=== PATIENT | female | born 1945 | race Caucasian/White ===

== ENCOUNTER 2022-07-13 11:14 | Observation (INO) ==
[2022-07-13 11:42] LABS: BASOPHILS # (AUTO) 0.1 X10^3/uL (0.0-0.1); BASOPHILS % (AUTO) 0.9 % (0.2-1.0); EOSINOPHILS # (AUTO) 0.4 x10^3/uL (0.0-0.2); EOSINOPHILS % (AUTO) 6.2 % (0.9-2.9); HEMATOCRIT 36.9 % (36.0-47.0); HEMOGLOBIN 12.5 g/dL (12.0-16.0); LYMPHOCYTES # (AUTO) 2.7 X10^3/uL (1.3-2.9); LYMPHOCYTES % (AUTO) 37.2 % (21.0-51.0); MEAN CORPUSCULAR HEMOGLOBIN 30.6 pg (27.0-34.0); MEAN CORPUSCULAR VOLUME 90.1 fL (80.0-100.0); MEAN PLATELET VOLUME 8.1 fL (7.4-11.0); MONOCYTES # (AUTO) 0.5 x10^3/uL (0.3-0.8); MONOCYTES % (AUTO) 6.9 % (0.0-13.0); NEUTROPHILS # (AUTO) 3.5 x10^3/uL (2.2-4.8); NEUTROPHILS % (AUTO) 48.8 % (42.0-75.0); RED BLOOD COUNT 4.09 X10^6/uL (3.5-5.4); RED CELL DISTRIBUTION WIDTH 13.1 % (11.6-16.5); WHITE BLOOD COUNT 7.2 X10^3/uL (3.6-10.0)
[2022-07-13 11:44] LABS: INR 1.01 (0.8-1.3)
--- NOTE | 2022-07-13 11:50 | CT ---
HISTORYCVASTUDYCT head without contrastTechnique: Axial noncontrast images with coronal and sagittal reformats. Dose reduction procedures were used with mA/kv adjusted for body size.COMPARISONNoneFINDINGSThe ventricles are normal in size shape and position. There is slight decreased attenuation in the periventricular white matter suggestive of small vessel vascular disease. There are no focal areas of abnormal attenuation to suggest recent or remote CVA, hemorrhage, mass lesion, or extra-axial fluid collection. The visualized sinuses are clear. The calvarium is intact. If acute CVA is a strong clinical consideration MRI with diffusion imaging would be of further diagnostic value in should be obtained.IMPRESSIONNo acute intracranial abnormality identified. See recommendation as aboveMild small vessel diseaseElectronically signed by: JEAN CARLOS DURÁN (Jul 13, 2022 11:48:51)
[2022-07-13 11:52] LABS: ALANINE AMINOTRANSFERASE 18 Units/L (12-78); ALBUMIN 3.4 g/dL (3.4-5.0); ALKALINE PHOSPHATASE 34 Units/L (46-116); ASPARTATE AMINO TRANSFERASE 32 Units/L (15-37); BLOOD UREA NITROGEN 16 mg/dL (7-18); CALCIUM 9.1 mg/dL (8.5-10.1); CHLORIDE 105 mmol/L (98-107); CHOL/HDL RATIO 2.8 (0.0-5.0); CHOLESTEROL 161 mg/dL (0-200); CREATINE KINASE 60 Units/L (26-192); CREATININE 1.21 mg/dL (0.55-1.02); HDL CHOLESTEROL 58 mg/dL (40-60); SODIUM 142 mmol/L (136-145); TOTAL PROTEIN 7.5 g/dL (6.4-8.2); TRIGLYCERIDES 65 mg/dL (0-150); eGFR NON BLACK RACES 46 (>60)
[2022-07-13] MEDS ORDERED: PLAVIX PO ONE (12:00)
[2022-07-13] MEDS ORDERED: NS 1,000 ML IV 1,000 ML ONE (12:01)
[2022-07-13] MEDS ORDERED: PLAVIX ONE (12:01)
--- NOTE | 2022-07-13 12:02 | TELESTROKE ---
[facility]ist Consult Date of Consult Date of Exam: 07/13/22 Time of Arrival to the ED: 11:14 Allergies Allergies Allergy/AdvReac Type Severity Reaction Status Date / Time No Known Drug Allergies Allergy Verified 10/12/21 09:42 Vital Signs Vital Signs: Temp Pulse Resp BP Pulse Ox O2 Del Method 07/13/22 11:14 98.1 F 82 18 141/76 99 Room Air 10/12/21 11:06 100/55 History of Present Illness History of Present Illness: [facility] TeleNeurology Consult Services Patient Name: Anna Covington Date of : 1945 Identification Number: Date of Service: 07/13/2022 11:20:16 Diagnosis: I63.9 - Cerebrovascular accident (CVA), unspecified mechanism (HCC) Impression: 77 yo F w hx of HTN and recent presentation in May with diffuse weakness/left facial numbness who presents with new onset L sided numbness now of face, arm, and leg concerning for lacunar stroke. NIHSS 1. tPA deferred given no disabling symptoms. CTH w/o shows no hemorrhage. Recommend MRI brain w/o, US carotids bl, TTE w bubble (if not done within 90 days), a1c, lipid panel. She was started on asa 81 mg and has been compliant, recommend giving plavix 300 mg now and tomorrow keeping on asa 81/plavix 75 for 30 days then plavix 75 monotherapy thereafter. Metrics: Last Known Well: 07/13/2022 10:30:00 [facility] Notification Time: 07/13/2022 11:20:16 Arrival Time: 07/13/2022 11:14:01 Stamp Time: 07/13/2022 11:20:16 Initial Response Time: 07/13/2022 11:21:11 Symptoms: left sided numbness. NIHSS Start Assessment Time: 07/13/2022 11:40:19 Patient is not a candidate for Thrombolytic. Thrombolytic Medical Decision: 07/13/2022 11:31:14 Patient was not deemed candidate for Thrombolytic because of following reasons: No disabling symptoms. CT head showed no acute hemorrhage or acute core infarct. ED Physician notified of diagnostic impression and management plan on 07/13/2022 11:57:58 Advanced Imaging: Advanced Imaging Not Completed because: low suspicion for LVO Our recommendations are outlined below. Recommendations: Stroke/Telemetry Floor Neuro Checks Bedside Swallow Eval DVT Prophylaxis IV Fluids, Normal Saline Head of Bed 30 Degrees Euglycemia and Avoid Hyperthermia (PRN Acetaminophen) Routine Consultation with Inhouse Neurology for Follow up Care Sign Out: Discussed with Emergency Department Provider History of Present Illness: Patient is a 77 year old Male. Patient was brought by EMS for symptoms of left sided numbness. Patient affirms new onset painless numbness starting around her left jaw then moving to the entire left hemiface and down into her left arm and leg. No focal weaknesses noted. She had an episode of diffuse weakness and left facial numbness/jaw numbness in mid May and was worked up for a TIA. She has been on asa 81 mg since then. No clear provoking factors to todays event although was 'sick' several days prior. Social History:Unable to obtain due to Patient Status Family History:Unable to obtain due to Patient Status Review of System: 14 Points Review of Systems was performed and was negative except mentioned in HPI. Anticoagulant use: No Antiplatelet use: No Allergies: Reviewed Examination: BP(141/76), Pulse(82), 1A: Level of Consciousness - Alert; keenly responsive + 0 1B: Ask Month and Age - Both Questions Right + 0 1C: Blink Eyes & Squeeze Hands - Performs Both Tasks + 0 2: Test Horizontal Extraocular Movements - Normal + 0 3: Test Visual [place] - No Visual Loss + 0 4: Test Facial Palsy (Use Grimace if Obtunded) - Normal symmetry + 0 5A: Test Left Arm Motor Drift - No Drift for 10 Seconds + 0 5B: Test Right Arm Motor Drift - No Drift for 10 Seconds + 0 6A: Test Left Leg Motor Drift - No Drift for 5 Seconds + 0 6B: Test Right Leg Motor Drift - No Drift for 5 Seconds + 0 7: Test Limb Ataxia (FNF/Heel-Fierro) - No Ataxia + 0 8: Test Sensation - Mild-Moderate Loss: Less Sharp/More Dull + 1 9: Test Language/Aphasia - Normal; No aphasia + 0 10: Test Dysarthria - Normal + 0 11: Test Extinction/Inattention - No abnormality + 0 NIHSS Score: 1 Pre-Morbid Modified Yves Scale: 0 Points = No symptoms at all Patient/Family was informed the Neurology Consult would occur via TeleHealth c onsult by way of interactive audio and video telecommunications and consented to receiving care in this manner. Patient is being evaluated for possible acute neurologic impairment and high probability of imminent or life-threatening deterioration. I spent total of 30 minutes providing care to this patient, including time for face to face visit via telemedicine, review of medical records, imaging studies and discussion of findings with providers, the patient and/or family. Dr Wil Asher [facility] Case [id number] Medical Decision Making Result Diagrams: 07/13/22 11:20 07/13/22 11:20 Labs: Laboratory Results - last 24 hr 07/13/22 07/13/22 07/13/22 11:20 11:20 11:20 WBC 7.2 RBC 4.09 Hgb 12.5 Hct 36.9 MCV 90.1 MCH 30.6 MCHC 34.0 RDW 13.1 Plt Count 263 MPV 8.1 Neut % (Auto) 48.8 Lymph % (Auto) 37.2 [place] % (Auto) 6.9 Eos % (Auto) 6.2 H Baso % (Auto) 0.9 Neut # (Auto) 3.5 Lymph # (Auto) 2.7 [place] # (Auto) 0.5 Eos # (Auto) 0.4 H Baso # (Auto) 0.1 Absolute Nucleated RBC 0.1 PT 13.0 INR Target Range - INR 1.01 APTT 24.5 PTT Comment - Fibrinogen 578 H Sodium 142 Corrected Sodium TNP Potassium 4.0 Chloride 105 Carbon Dioxide 29.0 BUN 16 Creatinine 1.21 H Est GFR (MDRD) Af Amer 56 L Est GFR (MDRD) Non-Af 46 L Glucose 107 H Calcium 9.1 Corrected Calcium TNP Total Bilirubin 0.30 AST 32 ALT 18 Alkaline Phosphatase 34 L Creatine Kinase 60 Troponin I High Sens 5.5 Total Protein 7.5 Albumin 3.4 Globulin 4.1 Albumin/Globulin Ratio 0.8 L Triglycerides 65 Cholesterol 161 LDL Cholesterol, Calc 90 HDL Cholesterol 58 Cholesterol/HDL Ratio 2.8
[2022-07-13] MEDS: NS 1,000 ML IV 1,000 ML IV SCH ×3 (12:03→20:20)
[2022-07-13 12:41] LABS: BILIRUBIN,URINE NEGATIVE (NEGATIVE); BLOOD/HEMOGLOBIN,URINE 2+ (NEGATIVE); GLUCOSE, URINE NEGATIVE (NEGATIVE); KETONES,URINE NEGATIVE (NEGATIVE); LEUKOCYTE ESTERASE ,URINE 1+ (NEGATIVE); NITRITES,URINE NEGATIVE (NEGATIVE); PROTEIN,URINE 2+ (NEGATIVE); UROBILINOGEN,URINE NORMAL (NORMAL)
--- NOTE | 2022-07-13 12:46 | DR.GENAD ---
HPI Time Seen Time Seen by Provider: 07/13/22 11:15 Complaint/Symptoms Chief Complaint Doctors Comments: PATIENT EXPERIENCED L SIDE WEAKNESS APPROXIMATELY ONE HOUR PRIOR TO ER EVALUATION. HAD MILD CVA 6 MONTHS AGO WITHOUT RESIDUAL NEUROLOGIC DEFICIT. PATIENT WAS PUT ON STROKE ALERT PROTOCHOL. Chief Complaint:: pt presents to the ED with complaints of "stroke like symptoms" pt reports left-sided jaw/teeth tingling, mild left arm numbness and left leg numbness that started at 1028. Denies any slurred speech or trouble swallowing. denies any facial drooping. pt reports no weakness only mild numbness. Self Treatment fo Chief Complaint: pt took asa 81 mg this am Source History Provided: Patient Mode of Arrival Mode of Arrival: Ambulatory Timing Onset of Chief Complaint: 07/13/22 PMH PMH Past Medical History: Yes Past Medical History: Hyperthyroidism Past Medical History Comment: TIA, Past Surgical History: No Surgical History: No History Family History History of Family Medical Conditions: Yes Family Medical History: Cancer Family Medical History Comment: Father-CVA Social History Does any household member use tobacco: No Do you use any recreational Drugs:: No Lives Where: [facility] Infectious screening In the last 2 months have you had wt loss of >10#?: NO Have you had fever, night sweats or hemotysis?: No Have you traveled outside the country in the last 6 months?: No Isolation: Standard ROS Review of Systems Constitutional: Other (LEFT SIDE WEAKNESS) Eyes: No Symptoms Reported ENTM: No Symptoms Reported Respiratoy: No Symptoms Reported Cardiovascular: No Symptoms Reported Gastrointestinal/Abdominal: No Symptoms Reported Genitourinary: No Symptoms Reported Neurological: Weakness (LEFT SIDE WEAKNESS) Musculoskeletal: No Symptoms Reported Integumentary: No Symptoms Reported Hematologic/Lymphatic: No Symptoms Reported Endocrine: No Symptoms Reported Psychiatric: No Symptoms Reported PE Vital Signs Vitals: Temperature 98.1 F Pulse Rate [Left Radial] 76 Pulse Rate 82 Respiratory Rate 22 Blood Pressure [Left Arm] 96/56 Blood Pressure 141/76 O2 Sat by Pulse Oximetry 98 General Limitations: No Limitations General Appearance: Anxious Head Head Exam: Normal Inspection, Atraumatic and Normocephalic Eyes Eye exam: Normal Appearance, PERRL and EOMI ENT ENT Exam: Normal Exam, Normal Oropharynx and Normal External Ear Exam External Ear Exam: Normal External Inspection TM/Canal Exam: Bilateral: Normal Nose Exam: Normal Nose Exam Mouth Exam: Normal Inspection Throat Exam: Normal Inspection Neck Neck Exam: Normal Inspection and Full ROM Chest Chest Inspection: Normal Inspection and Symmetric Chest Wall Rise Respiratory Respiratory Exam: Normal Lung Sounds Bilat Cardiovascular Cardiovascular Exam: Regular Rate and Normal Rhythm Abdominal Exam Abdominal Exam: Normal Inspection, Normal Bowel Sounds and Soft Extremities Extremities Exam: Normal Inspection and Full ROM Back Back Exam: Normal Inspection and Full ROM Neurologic Neurological Exam: Alert, Oriented X3 and CN II-XII Intact Psychiatric Psychiatric Exam: Anxious Skin Skin Exam: Warm, Dry and Intact MDM Differential Diagnosis Differential Diagnosis: CVA,TIA,ANXIETY COURSE Treatment Treatment: PATIENT WAS EVALUATED BY NEUROLOGIST DR AMBRIZ AND HE DID NOT THINK THAT PATIENT WAS HAVING CVA, THERE MIGHT BE MINOR AREA IN LACUNAR AREA AND HE STATED TO GET MRI OF BRAIN WITHOUT CONTRAST AND GIVE 300MG LOADING DOSE OF PLAVIX AND CONTINUE LOW DOSE ASPIRIN. GET ULTRASOUND OF CAROTIDS AND START PLAVIX 75 MG TOMORROW. REFER TO OBSERVATION TO MONITOR FOR ANY NEUROLOGIC CHANGES. PATIENT WAS MADE AWARE OF THE RECOMMENDATIONS AND WAS AGREABLE TO THE PLAN. SPOKE TO DR MCCORMACK AT 1302 AND HE ACCEPTED THE PATIENT TO OBSERVATION. ROR Labs Reviewed Laboratory Results Reviewed?: Yes Result Diagrams: 07/13/22 11:20 07/13/22 11:20 Laboratory: WBC 7.2 X10^3/uL (3.6-10.0) 07/13/22 11:20 RBC 4.09 X10^6/uL (3.5-5.4) 07/13/22 11:20 Hgb 12.5 g/dL (12.0-16.0) 07/13/22 11:20 Hct 36.9 % (36.0-47.0) 07/13/22 11:20 MCV 90.1 fL (80.0-100.0) 07/13/22 11:20 MCH 30.6 pg (27.0-34.0) 07/13/22 11:20 MCHC 34.0 g/dL (33.0-35.0) 07/13/22 11:20 RDW 13.1 % (11.6-16.5) 07/13/22 11:20 Plt Count 263 X10^3/uL (150.0-450.0) 07/13/22 11:20 MPV 8.1 fL (7.4-11.0) 07/13/22 11:20 Neut % (Auto) 48.8 % (42.0-75.0) 07/13/22 11:20 Lymph % (Auto) 37.2 % (21.0-51.0) 07/13/22 11:20 [place] % (Auto) 6.9 % (0.0-13.0) 07/13/22 11:20 Eos % (Auto) 6.2 % (0.9-2.9) H 07/13/22 11:20 Baso % (Auto) 0.9 % (0.2-1.0) 07/13/22 11:20 Neut # (Auto) 3.5 x10^3/uL (2.2-4.8) 07/13/22 11:20 Lymph # (Auto) 2.7 X10^3/uL (1.3-2.9) 07/13/22 11:20 [place] # (Auto) 0.5 x10^3/uL (0.3-0.8) 07/13/22 11:20 Eos # (Auto) 0.4 x10^3/uL (0.0-0.2) H 07/13/22 11:20 Baso # (Auto) 0.1 X10^3/uL (0.0-0.1) 07/13/22 11:20 Absolute Nucleated RBC 0.1 /100WBC 07/13/22 11:20 PT 13.0 SECONDS (11.8-14.3) 07/13/22 11:20 INR Target Range - 07/13/22 11:20 INR 1.01 (0.8-1.3) 07/13/22 11:20 APTT 24.5 SECONDS (22.9-36.5) 07/13/22 11:20 PTT Comment - 07/13/22 11:20 Fibrinogen 578 mg/dL (239-489) H 07/13/22 11:20 Sodium 142 mmol/L (136-145) 07/13/22 11:20 Corrected Sodium TNP 07/13/22 11:20 Potassium 4.0 mmol/L (3.5-5.1) 07/13/22 11:20 Chloride 105 mmol/L (98-107) 07/13/22 11:20 Carbon Dioxide 29.0 mmol/L (21-32) 07/13/22 11:20 BUN 16 mg/dL (7-18) 07/13/22 11:20 Creatinine 1.21 mg/dL (0.55-1.02) H 07/13/22 11:20 Est GFR (MDRD) Af Amer 56 (>60) L 07/13/22 11:20 Est GFR (MDRD) Non-Af 46 (>60) L 07/13/22 11:20 Glucose 107 mg/dL (65-99) H 07/13/22 11:20 Calcium 9.1 mg/dL (8.5-10.1) 07/13/22 11:20 Corrected Calcium TNP 07/13/22 11:20 Total Bilirubin 0.30 mg/dL (0.2-1.0) 07/13/22 11:20 AST 32 Units/L (15-37) 07/13/22 11:20 ALT 18 Units/L (12-78) 07/13/22 11:20 Alkaline Phosphatase 34 Units/L (46-116) L 07/13/22 11:20 Creatine Kinase 60 Units/L (26-192) 07/13/22 11:20 Troponin I High Sens 5.5 ng/L (4.0-60.0) 07/13/22 11:20 Total Protein 7.5 g/dL (6.4-8.2) 07/13/22 11:20 Albumin 3.4 g/dL (3.4-5.0) 07/13/22 11:20 Globulin 4.1 g/dL (2.5-4.5) 07/13/22 11:20 Albumin/Globulin Ratio 0.8 Ratio (1.1-2.1) L 07/13/22 11:20 Triglycerides 65 mg/dL (0-150) 07/13/22 11:20 Cholesterol 161 mg/dL (0-200) 07/13/22 11:20 LDL Cholesterol, Calc 90 mg/dL (0-100) 07/13/22 11:20 HDL Cholesterol 58 mg/dL (40-60) 07/13/22 11:20 Cholesterol/HDL Ratio 2.8 (0.0-5.0) 07/13/22 11:20 Specimen Type Clean catch urine 07/13/22 12:18 Urine Color Straw (YELLOW) 07/13/22 12:18 Urine Appearance Clear (CLEAR) 07/13/22 12:18 Urine pH 7.0 (5.0 - 8.0) 07/13/22 12:18 Ur Specific Saline 1.015 (1.000-1.030) 07/13/22 12:18 Urine Protein 2+ (NEGATIVE) 07/13/22 12:18 Urine Glucose (UA) Negative (NEGATIVE) 07/13/22 12:18 Urine Ketones Negative (NEGATIVE) 07/13/22 12:18 Urine Blood 2+ (NEGATIVE) 07/13/22 12:18 Urine Nitrite Negative (NEGATIVE) 07/13/22 12:18 Urine Bilirubin Negative (NEGATIVE) 07/13/22 12:18 Urine Urobilinogen Normal (NORMAL) 07/13/22 12:18 Ur Leukocyte Esterase 1+ (NEGATIVE) 07/13/22 12:18 Urine RBC 3-5 /HPF (0-3) A 07/13/22 12:18 Urine WBC 0-2 /HPF (0-5) 07/13/22 12:18 Ur Squamous Epith Cells Rare /HPF (NEGATIVE) 07/13/22 12:18 Urine Bacteria Trace /HPF (NEGATIVE) 07/13/22 12:18 Ur Culture Indicated? No/not indicated 07/13/22 12:18 Blood Type A POSITIVE 07/13/22 11:46 Antibody Screen Negative 07/13/22 11:46 XRAY XRAY Interpreted by: Radiologist X-ray Results: NO ACUTE INTRATHORACIC ABNORMALITY. CT OF BRAIN NO ACUTE BLEED OR ATHER INTRACRANIAL ABNORMALITY. EKG Rhythm: NSR Opioid Opioid Risk Tool Age (Fransisco box if 16-45): No History of Preadolescent Sexual Abuse: No Total: 0 Total Score Risk Category: Low Risk Copyright: Xavier CODY predicting aberrant behaviors Discharge Plan Diagnosis Discharge Problem: Transient ischemic attack (TIA) Discharge Plan Patient Disposition: 09 ADMITTED INPATIENT Condition: Stable Prescriptions: No Action celecoxib 200 mg capsule 200 mg PO BID alprazolam 1 mg tablet 1 mg PO TID PRN fluoxetine 10 mg capsule 10 mg PO BID aspirin 81 mg Tablet 81 mg PO DAILY rosuvastatin 5 mg tablet 5 mg PO QDAY Health Concerns: Post Hospitalization: new medications and changes needed to prevent readmission or further decline. Pt educated and given instructions on all concerns. Plan of Treatment: Continue with present treatment and follow up plan. Pt is to keep follow up appointment as instructed and take medications as ordered. Orders to Discharge Patient Discharge Orders: Transfer (Routine); Ordered 07/13/22 Ordered By: Yuan Abel Follow ups/Referrals Follow ups/Referrals: AILEEN BLEVINS [Primary Care Provider] - 3 days Instructions Stand Alone Forms: Precautions for COVID19, [facility], Patient Portal, Social Distancing
[2022-07-13 12:51] LABS: APPEARANCE,URINE CLEAR (CLEAR); COLOR,URINE STRAW (YELLOW)
[2022-07-13 12:52] LABS: BACTERIA,URINE TRACE /HPF (NEGATIVE); SQUAMOUS EPITHELIAL CELL,UR RARE /HPF (NEGATIVE)
--- NOTE | 2022-07-13 14:21 | RAD ---
HISTORYPOSS STROKESTUDYCHEST, 1 VIEWCOMPARISONNoneFINDINGSThe cardiomediastinal silhouette is normal in size. No acute airspace disease. No pneumothorax or effusion. The bony thorax appears intact.IMPRESSIONNo acute cardiopulmonary disease.Electronically signed by: JEAN CARLOS DURÁN (Jul 13, 2022 14:18:50)
--- NOTE | 2022-07-13 14:38 | VAS ---
HISTORYLEFT SIDED WEAKNESSConcern for carotid artery stenosis. Carotid atherosclerosis.EXAM: BILATERAL DOPPLER CAROTID ULTRASOUND EXAMTechnique: Multiple ryan scale and color flow Doppler images of the right and left carotid arterial system were obtained.The vertebral arterial system was evaluated as well.Findings:Nonocclusive color flow Doppler is seen throughout the right and left carotid arterial system.No hemodynamically significant carotid arterial stenosis is seen based on velocity criteria. There is moderate bilateral carotid atherosclerosis and plaque formation of the bilateral carotid bulbs and ICAs with associated intimal thickening but without sonographic evidence for high-grade stenosis (>70%) or occlusion of the carotid arteries. The right and left vertebral artery demonstrate antegrade flow.IMPRESSION:Moderate bilateral carotid atherosclerosis and mixed plaque formation of the bilateral carotid bulbs and [in both] ICAs with associated carotid intimal thickening but without evidence for high-grade stenosis or occlusion of the carotid arteries, based on Doppler velocity criteria.Appropriate, antegrade, vertebral arterial flow.Peak right ICA velocity: 48 centimeter/seconds.Peak right CCA velocity: 52 centimeter/seconds.Peak left ICA velocity: 105 centimeter/seconds.Peak left CCA velocity: 68 centimeter/seconds.Right ICA to CCA ratio: 0.92.Left ICA to CCA ratio: 1.53.Electronically signed by: STEVEN LUTHER III (Jul 13, 2022 14:37:09)
[2022-07-13] MEDS: CRESTOR TAB 10 MG PO SCH (15:25)
[2022-07-13] MEDS: ASPIRIN EC 81 MG PO SCH (15:25)
[2022-07-13 15:29] VITALS: BMI 17.5
--- NOTE | 2022-07-13 15:29 | MRI ---
HISTORYLeft sided numbnessSTUDYBRAIN W/O CONCOMPARISONCT head without contrast from July 13, 2022TECHNIQUENon-contrast MRI images of the brain were obtained utilizing a routine protocol.FINDINGSNo abnormal signal in the dural sinuses on the sagittal T1 sequence.Pituitary gland and stalk appear normal.No mass effect on the optic chiasm.No Chiari 1 malformation.Imaged portion of the spine and spinal cord appear grossly normal.No restricted diffusion.Flow voids appear normal on the T2 sequence.No intracranial, extra-axial, fluid collection.No mass, mass effect or midline shift.No abnormal areas of acute T2 signal in the brain parenchyma.No blooming artifact in the brain parenchyma.Sinuses are well aeratedMastoid air cells are well aerated.Globes and intra-orbital contents appear normal.No ventriculomegaly.IMPRESSIONNo acute intracranial abnormality identified.Electronically signed by: Doug Toro (Jul 13, 2022 15:27:51)
[2022-07-13] MEDS: XANAX PO PRN (19:03)
[2022-07-13] MEDS: PROzac PO SCH (20:21)
[2022-07-14] MEDS: NS 1,000 ML IV 1,000 ML IV SCH (04:10)
[2022-07-14 05:16] LABS: BASOPHILS # (AUTO) 0.1 X10^3/uL (0.0-0.1); BASOPHILS % (AUTO) 1.3 % (0.2-1.0); EOSINOPHILS # (AUTO) 0.8 x10^3/uL (0.0-0.2); EOSINOPHILS % (AUTO) 13.7 % (0.9-2.9); HEMATOCRIT 31.6 % (36.0-47.0); HEMOGLOBIN 10.7 g/dL (12.0-16.0); LYMPHOCYTES # (AUTO) 1.8 X10^3/uL (1.3-2.9); LYMPHOCYTES % (AUTO) 31.5 % (21.0-51.0); MEAN CORPUSCULAR HEMOGLOBIN 30.6 pg (27.0-34.0); MEAN PLATELET VOLUME 8.2 fL (7.4-11.0); MONOCYTES # (AUTO) 0.4 x10^3/uL (0.3-0.8); MONOCYTES % (AUTO) 7.3 % (0.0-13.0); NEUTROPHILS # (AUTO) 2.7 x10^3/uL (2.2-4.8); NEUTROPHILS % (AUTO) 46.2 % (42.0-75.0); RED BLOOD COUNT 3.51 X10^6/uL (3.5-5.4); RED CELL DISTRIBUTION WIDTH 13.2 % (11.6-16.5); WHITE BLOOD COUNT 5.8 X10^3/uL (3.6-10.0)
[2022-07-14 05:29] LABS: ALANINE AMINOTRANSFERASE 17 Units/L (12-78); ALBUMIN 2.7 g/dL (3.4-5.0); ALKALINE PHOSPHATASE 27 Units/L (46-116); ASPARTATE AMINO TRANSFERASE 24 Units/L (15-37); BLOOD UREA NITROGEN 14 mg/dL (7-18); CALCIUM 8.2 mg/dL (8.5-10.1); CARBON DIOXIDE 28.1 mmol/L (21-32); CHLORIDE 111 mmol/L (98-107); COR CA(FOR HYPOALB) 9.2 mg/dL (8.5-10.1); CREATININE 1.01 mg/dL (0.55-1.02); SODIUM 145 mmol/L (136-145); eGFR NON BLACK RACES 57 (>60)
[2022-07-14] MEDS: XANAX PO PRN (07:08)
[2022-07-14] MEDS ORDERED: PLAVIX PO SCH (09:00)
[2022-07-14] MEDS: ASPIRIN EC 81 MG PO SCH (09:25)
[2022-07-14] MEDS: PROzac PO SCH (09:27)
[2022-07-14] MEDS: CRESTOR TAB 10 MG PO SCH (09:29)
[2022-07-14 12:23] VITALS: BP 118/56
== END 2022-07-14 13:20 | disposition home or self-care (01) ==
LOC: MED/SURG 11:14 → ER 11:14 → MED/SURG 14:02
PROVIDERS: ADMIT Internal Medicine; ATTEND Internal Medicine
DX: I10 Essential (primary) hypertension; Z86.73 Personal history of transient ischemic attack (TIA), and cerebral infarction without residual deficits; G45.8 Other transient cerebral ischemic attacks and related syndromes; F41.8 Other specified anxiety disorders; R53.1 Weakness; M19.90 Unspecified osteoarthritis, unspecified site; M81.0 Age-related osteoporosis without current pathological fracture; R51.9 Headache, unspecified; R20.0 Anesthesia of skin